=== PATIENT | female | born 1975 | race Caucasian/White ===

== ENCOUNTER 2021-05-01 13:37 | Observation (INO) ==
[2021-05-01] MEDS ORDERED: Ondansetron 4 MG/2 ML VIAL IVP PRN (15:09)
[2021-05-01] MEDS ORDERED: Naloxone 0.4 MG/ML INJ IVP PRN (15:09)
[2021-05-01] MEDS ORDERED: Ibuprofen 400 MG TABLET PO PRN (15:09)
[2021-05-01] MEDS ORDERED: *HR* OxyCODONE Immed Rel 5 MG TABLET PO PRN (15:09)
[2021-05-01] MEDS ORDERED: predniSONE 20 MG TABLET PO ONE (15:42)
[2021-05-01] MEDS ORDERED: Ipratropium/Albuterol Neb 3 ML IH PRN (15:42)
[2021-05-01] MEDS ORDERED: *HR* Heparin 5,000 UNIT/ML VIAL ONE (15:48)
[2021-05-01] MEDS ORDERED: D5% in Water 1,000 ML IVC PRN (16:02)
[2021-05-01] MEDS ORDERED: *HR* Dextrose 50 % in Water (Syg) 50 ML SYRINGE IVP PRN (16:02)
[2021-05-01] MEDS ORDERED: Dextrose Gel 15 GM/37.5 ML TUBE PO PRN ×2 (16:02)
[2021-05-01] MEDS: Insulin LISPRO 300 UNITS/3 ML VIAL SUBQ SCH (16:28)
[2021-05-01] MEDS: *HR* Heparin 5,000 UNIT/ML VIAL SQ SCH (16:29)
[2021-05-01] MEDS: Nitroglycerin 0.4 MG TAB.SUBL SL PRN (16:51)
[2021-05-02 03:52] LABS: Basophils % 0.3 %; Hematocrit 35.4 % (35.3-44.9); Hemoglobin 10.5 g/dL (11.5-15.4); Immature Granulocytes % 0.8 % (0-4); Lymphocytes # 1.7 K/mcL (0.6-4.6); Lymphocytes % 14.3 %; Mean Corpuscular HGB Conc 29.7 g/dL (31.6-35.5); Mean Corpuscular Hemoglobin 22.6 pg (28.0-33.3); Mean Corpuscular Volume 76.1 fL (83.0-100.0); Mean Platelet Volume 8.9 fL (9.4-12.4); Monocytes # 0.2 K/mcL (0.0-1.3); Monocytes % 1.7 %; Platelet Count 428 K/mcL (140-400); Red Blood Count 4.65 M/mcL (3.82-4.97); Red Cell Distribution Width 23.3 % (11.5-14.5); Segmented Neutrophils % 82.9 %
[2021-05-02 04:15] LABS: Anisocytosis 1+ (Not Present); Platelet Estimate Normal (Normal)
[2021-05-02] MEDS: *HR* Heparin 5,000 UNIT/ML VIAL SQ SCH (06:00)
[2021-05-02 07:29] LABS: Troponin I 0.06 ng/mL (< 0.04)
[2021-05-02 07:30] LABS: BUN/Creatinine Ratio 15 (6-26); Blood Urea Nitrogen 10 mg/dL (6-20); Calcium 9.2 mg/dL (8.6-10.3); Carbon Dioxide 28 mEq/L (23-29); Chloride 103 mEq/L (98-107); Chol/HDL Ratio 4.4 (0-4.9); Cholesterol 191 mg/dL (< 200); Glucose 120 mg/dL (70-105); HDL Cholesterol 43 mg/dL (40-59); LDL Cholesterol,Calculated 117 mg/dL (< 100); Magnesium 2.3 mg/dL (1.6-2.6); Osmolality,Calculated 282 (280-300); Phosphorous 2.9 mg/dL (2.7-4.5); Potassium 4.3 mEq/L (3.5-5.1); Sodium 136 mEq/L (136-145); Triglycerides 156 mg/dL (< 150); eGFR For African Americans > 60 (> 60); eGFR For Non-African Americans > 60 (> 60)
[2021-05-02] MEDS: Insulin LISPRO 300 UNITS/3 ML VIAL SUBQ SCH ×2 (07:39→14:50)
[2021-05-02] MEDS ORDERED: predniSONE 20 MG TABLET PO SCH (09:00)
[2021-05-02] MEDS ORDERED: Nicotine 21 MG PATCH.TD24 TD SCH (09:00)
[2021-05-02] MEDS ORDERED: Metoprolol XL (24 HR) Succ 25 MG TAB.ER.24H PO SCH (09:00)
[2021-05-02] MEDS: Nitroglycerin 0.4 MG TAB.SUBL SL PRN (10:29)
[2021-05-02 11:57] LABS: Adenovirus Not Detected (Not Detect); Bordetella Pertussis Not Detected (Not Detect); Chlamydophila pneumoniae Not Detected (Not Detect); Coronavirus 229E Not Detected (Not Detect); Coronavirus HKU1 Not Detected (Not Detect); Coronavirus NL63 Not Detected (Not Detect); Coronavirus OC43 Not Detected (Not Detect); Human Metapneumovirus Not Detected (Not Detect); Human Rhinovirus/Enterovirus Not Detected (Not Detect); Influenza A Subtype 2009 H1 Not Detected (Not Detect); Influenza B Not Detected (Not Detect); Mycoplasma pneumoniae Not Detected (Not Detect); Parainfluenza Virus 1 Not Detected (Not Detect); Parainfluenza Virus 2 Not Detected (Not Detect); Parainfluenza Virus 3 Not Detected (Not Detect); Parainfluenza Virus 4 Not Detected (Not Detect); Respiratory Syncytial Virus Not Detected (Not Detect); SARS-CoV-2 Not Detected (Not Detect)
[2021-05-02 14:58] VITALS: BP 128/87; PULSE 75; TEMP 98.2; O2SAT 95
[2021-05-03] MEDS ORDERED: Aspirin 81 MG TAB.CHEW PO SCH (09:00)
== END 2021-05-02 17:07 | disposition home or self-care (01) ==
LOC: 3BNU → SUATTDRO 15:01
PROVIDERS: ADMIT Internal Medicine; ATTEND Registered Nurse